=== PATIENT | female | born 1950 | race Caucasian/White ===

== ENCOUNTER 2016-10-24 09:40 | Outpatient (CLI) | payer OTHER | END 2016-10-24 19:36 | disposition home or self-care (01) | LOC: SMA 09:40 | PROVIDERS: ATTEND Family Medicine | DX: Z12.31 Encounter for screening mammogram for malignant neoplasm of breast (principal) | CPT/HCPCS: G0202 ==

== ENCOUNTER 2017-11-26 10:12 | Outpatient (CLI) | payer OTHER | END 2017-11-26 20:14 | disposition home or self-care (01) | LOC: SMA 10:12 | PROVIDERS: ATTEND Family Medicine | DX: Z12.31 Encounter for screening mammogram for malignant neoplasm of breast (principal) | CPT/HCPCS: 77067 ==

== ENCOUNTER 2019-05-07 09:05 | Outpatient (CLI) | payer OTHER | END 2019-05-07 20:03 | disposition home or self-care (01) | LOC: SMA 09:05 | PROVIDERS: ATTEND Family Medicine | DX: Z12.31 Encounter for screening mammogram for malignant neoplasm of breast (principal) | CPT/HCPCS: 77067 ==

== ENCOUNTER 2020-06-06 09:41 | Outpatient (CLI) | payer OTHER | END 2020-06-06 20:56 | disposition home or self-care (01) | LOC: SMA 09:41 | PROVIDERS: ATTEND Family Medicine | DX: Z12.31 Encounter for screening mammogram for malignant neoplasm of breast (principal); N64.89 Other specified disorders of breast | CPT/HCPCS: 77067 ==